=== PATIENT | female | born 1990 | race Caucasian/White ===

== ENCOUNTER 2016-11-03 18:00 | Inpatient (IN) | payer MEDICAID, OTHER ==
[2016-11-03] MEDS ORDERED: Penicillin G 5 Million Unit Vial IVPB ONE ×2 (18:23→22:28)
[2016-11-03] MEDS ORDERED: Lactated Ringer's 1,000 ML IV SCH (18:30)
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
--- NOTE | 2016-11-03 19:43 | OBPN ---
Datetime: 11/03/2016 19:38 IP Progress Impression: Normal progression of labor IP Informed Consent Obtain: Vaginal Delivery IP Progress Plan: Continue present management FHR - Baseline A Provider: 145 Gestation - Est Wks by US: 37.2 IP Progress Note Comment: pt seen and examined c/o pain VE 4-5 A/P P1 @ 37+ wks in active labor -declined pain managment -conttoco adn efm -cont current managment Vital Signs Provider: Reviewed NICHD Variability Prov Fetus A: Moderate 6-25bpm Dilatation, Provider: 4 Effacement, Provider: 70 Station, Provider: -2 Datetime: 11/03/2016 18:30 Membranes, Provider: Intact Contraction Comments Provider: q 2- 3min Presentation-Admit: Vertex
[2016-11-03 20:07] LABS: BASO % 0.3 % (0.0-2.0); EOS # 0.1 K/uL (0.0-0.7); EOS % 0.7 % (0.0-4.0); HEMATOCRIT 31.5 % (34.0-47.0); LYMPH # 2.7 K/uL (1.0-4.3); LYMPH % 20.2 % (20.0-40.0); MEAN CELL VOLUME 90.5 fL (81.0-99.0); MEAN CORPUSCULAR HEMOGLOBIN 31.3 pg (27.0-31.0); MEAN CORPUSCULAR HGB CONC 34.6 g/dL (33.0-37.0); MONO # 0.8 K/uL (0.0-0.8); MONO % 6.1 % (0.0-10.0); NRBC % 0.1 % (0.0-2.0); RED CELL DISTRIBUTION WIDTH 12.6 % (11.5-14.5); WHITE BLOOD COUNT 13.4 K/uL (4.8-10.8)
[2016-11-03 20:18] LABS: ALKALINE PHOSPHATASE 190 U/L (38-126); ALT/SGPT 25 U/L (9-52); AST/SGOT 26 U/L (14-36); BILIRUBIN,TOTAL 0.6 mg/dL (0.2-1.3); BLOOD UREA NITROGEN 7 mg/dL (7-17); CALCIUM 9.5 mg/dl (8.6-10.4); CARBON DIOXIDE 22 mmol/L (22-30); CHLORIDE 101 mmol/L (98-107); GFR AFRICAN-AMERICAN > 60; GLUCOSE,RANDOM 69 mg/dL (65-105); POTASSIUM 3.9 mmol/L (3.6-5.2); SODIUM 137 mmol/L (132-148); TOTAL PROTEIN 7.3 g/dL (6.3-8.3)
[2016-11-03 20:37] LABS: RBC URINE 27 /hpf (0-3); TRANSITIONAL EPITHIAL < 1 /hpf (0-3); URINE BACTERIA FEW (<OCC); URINE BILIRUBIN NEGATIVE (NEGATIVE); URINE BLOOD 2+ (NEGATIVE); URINE COLOR Yellow (YELLOW); URINE GLUCOSE (UA) NORMAL (Normal); URINE KETONE NEGATIVE (NEGATIVE); URINE LEUKOCYTE ESTERASE 2+ Leu/uL (Negative); URINE PROTEIN NEGATIVE (NEGATIVE); URINE UROBILINOGEN NORMAL mg/dL (0.2-1.0); WBC URINE 47 /hpf (0-5)
[2016-11-03] MEDS ORDERED: Nalbuphine 20 mg/ml Inj (1 ml) IVP PRN (21:00)
[2016-11-03] MEDS ORDERED: Nalbuphine 20 mg/ml Inj (1 ml) ONE (21:21)
[2016-11-03] MEDS ORDERED: Bupivacaine 0.25% Inj(30mL) ONE (23:37)
[2016-11-03] MEDS ORDERED: Oxytocin 30 UNIT 30 UNITS/500 ML BAG IV SCH (23:45)
[2016-11-03] MEDS ORDERED: Oxytocin 30 UNIT 30 UNITS/500 ML BAG IV ONE (23:51)
[2016-11-04] MEDS ORDERED: Benzocaine/Menthol 20%-0.5% Topical Spray (60 ml) TOP PRN (03:36)
--- NOTE | 2016-11-04 03:36 | OBDS ---
DELIVERY PERSONNEL Delivery Doctor: Flor Chopra MD Typewriter Assembler: Jessica Arce RN Anesthesiologist: Flor Hughes MD MATERNAL INFORMATION Delivery Anesthesia: Epidural Medications in Delivery: pitocin 20 units Estimated Blood Loss (ml): 400 Placenta Cultured: No Maternal Complications: None Provider Comments: pt was fully dilated and pushing. atrumatic, spontanous deliveyr of head in Nikolay p ositon, no nuchal cord noted. atrumat,c spontnaous delivyer of anterior followed by posteiro shoulder followed by deliveyr of body . both oral and nsal passage of baby bulb suctioned. umbical cord clamp ed and cut. Cord blood and cord gases collected adn sent x 2. Spontaneous deliveyr of intact placenta with membrnes. fundus firm. intact perineum. good hemostasis, no ocmplications. live male apgars 9,9 weight of 5lb 13 ounces ebl 400ml LABOR SUMMARY EDC: 11/22/2016 00:00 No. Babies in Womb: 1 Attempted: No Labor Anesthesia: Epidural LABOR INFORMATION Reason for Induction: Not Applicable Onset of Labor: 11/03/2016 19:00 Oxytocin: Augmentation Group B Beta Strep: Not Done Steroids Given: None Reason Steroids Not Administered: Not Applicable MEMBRANES Membranes Rupture Method: Artificial Rupture of Membranes: 11/03/2016 23:44 Length of Rupture (hrs): 3.57 Amniotic Fluid Color: Light Meconium Amniotic Fluid Amount: Small Amniotic Fluid Odor: Normal BABY A INFORMATION Delivery Date/Time: 11/04/2016 03:18 Method of Delivery: Vaginal Born in Route : No : N/A Forceps: N/A Vacuum Extraction: N/A Shoulder Dystocia : No SHOULDER DYSTOCIA BABY A Delivery Date/Time: 11/04/2016 03:18 PRESENTATION/POSITION BABY A Presentation: Cephalic Cephalic Presentation: Vertex INFORMATION BABY A Gestational Age at Delivery: 37.2 Gestational Status: Term Outcome : Liveborn Condition : Stable Infant Sex: Male IDENTIFICATION/MEDS BABY A ID Band Number: [id number] Sensor Number: [id number] WEIGHT/LENGTH BABY A Infant Birthweight (gms): 2935 Infant Weight (lb): 6 Infant Weight (oz): 7 Infant Length Inches: 19.00 Infant Length cms: 48.3
[2016-11-04] MEDS ORDERED: Oxytocin 30 UNIT 30 UNITS/500 ML BAG IV SCH (03:45)
[2016-11-04] MEDS: Oxycodone/Acetaminophen 5/325 mg Tab PO PRN ×4 (07:18→20:34)
[2016-11-04] MEDS ORDERED: Oxycodone/Acetaminophen 5/325 mg Tab ONE (07:21)
[2016-11-04 17:07] LABS: RAPID PLASMA REAGIN NONREACTIVE (NONREACTIVE)
[2016-11-05] MEDS: Oxycodone/Acetaminophen 5/325 mg Tab PO PRN ×4 (02:12→20:18)
[2016-11-05 08:16] LABS: HEMATOCRIT 26.4 % (34.0-47.0); MEAN CORPUSCULAR HGB CONC 34.1 g/dL (33.0-37.0); RED CELL DISTRIBUTION WIDTH 13.2 % (11.5-14.5); WHITE BLOOD COUNT 12.1 K/uL (4.8-10.8)
--- NOTE | 2016-11-05 10:46 | OBPPN ---
Datetime: 11/05/2016 10:36 PP Pain Prov: Within normal limits PP Nausea Prov: Denies PP Flatus Prov: Yes PP BM Prov: No PP Breasts Prov: Normal PP Heart Prov: Normal PP Lungs Prov: Normal PP Abdomen/Uterus Prov: Normal PP Lochia Prov: Normal PP Vulva/Perineum Prov: Normal PP CVA Tenderness Prov: Normal PP Extremities Prov: Normal PP C/S Incision Prov: Not Applicable PP Progress Prov: Normal PP Comments Phys Exam Prov: Breasts: no cracked nipples Abdomen: Soft. Non distended. Fundus firm, mobile, minimally tender, at umbilicus. Moderate loch ia All other systems reviewed and are negative. PP Impression Prov: Normal progression PP Plan Prov: Continue present management PP Progress Note Prov: Patient received in bed in room 455; awakened and easily awakened. Breastfee ding primarily. P.E.: as above. WD in NAD. Awake, alert, oriented to time, person and place - PPD#1 H/H 9.0/26.4. Rh(+) Assessment: PPD#1, 26 y.o. P2022, S/P . Aebrile; vital signs stable. Anemianoted; chronic - a symptomatic and hemodynamically stable. Clinically stable. Plan: 1) continue present management 2) start ferrous sulphate 1 tab po QD 3) Anticipate discharge home 11/06/16 Vital Signs Provider PP: Reviewed
[2016-11-06 11:15] VITALS: BP 118/88; PULSE 60; RESP 18; TEMP 97.1; O2SAT 100
--- NOTE | 2016-11-06 11:19 | OBPPN ---
Datetime: 11/06/2016 07:24 PP Pain Prov: Within normal limits PP Nausea Prov: Denies PP Flatus Prov: Yes PP BM Prov: No PP Impression Prov: Normal progression PP Plan Prov: Continue present management; Discharge PP Progress Note Prov: Patient seen and examined at bedside. Patient is doing well, pain is controll ed. Lochia is mild. Patient is ambulating and tolerating diet. Urinating without difficulty. Patient is passing flatus, no BM. Denies headaches, dizziness, cp, palpitations, sob, urinary symtoms. +breas t feeding VS: 115/71 67 98.2 Gen: AAOx3, NAD CV: RRR Lungs: CTA B/L Abd: soft, appropriately tender, fundus firm at umbilicus Ext: No clubbing, cyanosis, edema; no calf tenderness Labs: 13.4>10.9/31.5<247 12.1>9.0/26.4<161 O positive Rubella immune A/P: 26 yo at 37w3d s/p PPD#2 1. stable, afebrile 2. pain control - motrin and tylenol prn 3. encourage ambulation and hydration 4. anemia - continue ferrous sulfate 5. continue routine care 6. anticipate discharge today- pelvic rest x 6 wks, tylenol/motrin prn pain, f/u with clinic in 6 weeks 7. plan d/w attending Chaya Salazar DO, PGY-[address] Rock Vital Signs Provider PP: Reviewed
== END 2016-11-06 15:20 | disposition home or self-care (01) | DRG 373 ==
LOC: C.EROB 18:00 → C.4D 18:24 → C.4M 11-04 10:23
PROVIDERS: ADMIT Obstetrics & Gynecology; ATTEND Obstetrics & Gynecology
PROC: 10E0XZZ Delivery of Products of Conception, External Approach (ICD-10-PCS; principal; 2016-11-04)
PROC: 10907ZC Drainage of Amniotic Fluid, Therapeutic from Products of Conception, Via Natural or Artificial Opening (ICD-10-PCS; 2016-11-04)
DX: O99.02 Anemia complicating childbirth (principal); O77.0 Labor and delivery complicated by meconium in amniotic fluid; Z3A.37 37 weeks gestation of pregnancy; Z37.0 Single live birth

== ENCOUNTER 2017-07-10 18:36 | Emergency (ER) | payer MEDICAID ==
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
[2017-07-10 19:17] VITALS: RESP 22; TEMP 98.6
[2017-07-10] MEDS ORDERED: Sodium Chloride 0.9% 1,000 ML IV ONE (19:31)
[2017-07-10 19:50] LABS: BASO # 0.1 K/uL (0.0-0.2); BASO % 0.7 % (0.0-2.0); EOS # 0.1 K/uL (0.0-0.7); LYMPH # 2.2 K/uL (1.0-4.3); LYMPH % 19.7 % (20.0-40.0); MEAN CELL VOLUME 90.1 fL (81.0-99.0); MEAN CORPUSCULAR HEMOGLOBIN 31.2 pg (27.0-31.0); MEAN CORPUSCULAR HGB CONC 34.6 g/dL (33.0-37.0); MEAN PLATELET VOLUME 8.8 fL (7.2-11.7); MONO # 0.6 K/uL (0.0-0.8); MONO % 5.5 % (0.0-10.0); NEUT # 8.2 K/uL (1.8-7.0); NEUT % 73.1 % (50.0-75.0); RBC 3.92 Mil/uL (3.80-5.20); RED CELL DISTRIBUTION WIDTH 12.4 % (11.5-14.5); WHITE BLOOD COUNT 11.2 K/uL (4.8-10.8)
[2017-07-10 19:52] LABS: HEMOGLOBIN 12.2 g/dL (11.0-16.0)
[2017-07-10 20:02] LABS: ALB/GLOB RATIO 1.1 (1.0-2.1); ALBUMIN 4.1 g/dL (3.5-5.0); ALT/SGPT 21 U/L (9-52); AST/SGOT 17 U/L (14-36); BLOOD UREA NITROGEN 9 mg/dL (7-17); CALCIUM 9.2 mg/dl (8.6-10.4); GFR AFRICAN-AMERICAN > 60; GFR NON-AFRICAN AMERICAN > 60
[2017-07-10 20:06] LABS: BARBITURATES, UR NEGATIVE (NEGATIVE); BENZODIAZEPINES, UR NEGATIVE (NEGATIVE); OPIATES, UR NEGATIVE (NEGATIVE); PHENCYCLIDINE, UR NEGATIVE (NEGATIVE)
[2017-07-10 20:11] LABS: SQUAMOUS EPITHIAL 25 /hpf (0-5); URINE BACTERIA FEW (<OCC); URINE BILIRUBIN NEGATIVE (NEGATIVE); URINE BLOOD NEGATIVE (NEGATIVE); URINE CLARITY Hazy (Clear); URINE COLOR Yellow (YELLOW); URINE GLUCOSE (UA) NORMAL (Normal); URINE LEUKOCYTE ESTERASE TRACE Leu/uL (Negative); URINE PROTEIN 2+ mg/dL (NEGATIVE); URINE UROBILINOGEN NORMAL mg/dL (0.2-1.0)
[2017-07-11] VITALS: BP 106/68; PULSE 73; O2SAT 98
== END 2017-07-11 00:29 | disposition home or self-care (01) ==
LOC: C.ER 18:36
DX: F19.10 Other psychoactive substance abuse, uncomplicated (principal)
CPT/HCPCS: 80053; 80324; 80345; 80346; 80349; 80353; 80358; 80361; 81001; 83992; 85025; 96360; 99284; J7040

== ENCOUNTER 2017-07-29 09:24 | Emergency (ER) | payer MEDICAID ==
[2017-07-29 09:30] VITALS: TEMP 98.3
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
[2017-07-29 10:36] VITALS: BP 121/81; PULSE 79; RESP 20
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
[2017-07-29 12:07] VITALS: O2SAT 98
== END 2017-07-29 10:36 | disposition home or self-care (01) ==
LOC: C.ER 09:24
DX: S60.222A Contusion of left hand, initial encounter (principal); W22.8XXA Striking against or struck by other objects, initial encounter

== ENCOUNTER 2017-09-27 10:41 | Emergency (ER) | payer MEDICAID ==
[2017-09-27 10:41] VITALS: BMI 28.9
[2017-09-27 10:50] VITALS: TEMP 98.5; O2SAT 100
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
[2017-09-27 12:04] VITALS: BP 124/80; PULSE 73; RESP 18
== END 2017-09-27 12:10 | disposition home or self-care (01) ==
LOC: C.ER 10:41
DX: S40.021A Contusion of right upper arm, initial encounter (principal); S80.12XA Contusion of left lower leg, initial encounter; W10.9XXA Fall (on) (from) unspecified stairs and steps, initial encounter; Y92.9 Unspecified place or not applicable

== ENCOUNTER 2017-12-27 14:26 | Emergency (ER) | payer MEDICAID ==
[2017-12-27 14:26] VITALS: BMI 28.9
[2017-12-27 15:22] LABS: BASO # 0.1 K/uL (0.0-0.2); BASO % 1.1 % (0.0-2.0); EOS # 0.1 K/uL (0.0-0.7); HEMOGLOBIN 12.6 g/dL (11.0-16.0); LYMPH # 2.7 K/uL (1.0-4.3); LYMPH % 26.9 % (20.0-40.0); MEAN CORPUSCULAR HEMOGLOBIN 31.8 pg (27.0-31.0); MEAN CORPUSCULAR HGB CONC 34.6 g/dL (33.0-37.0); MEAN PLATELET VOLUME 8.8 fL (7.2-11.7); MONO # 0.7 K/uL (0.0-0.8); MONO % 6.8 % (0.0-10.0); NEUT # 6.4 K/uL (1.8-7.0); NEUT % 64.2 % (50.0-75.0); RBC 3.95 Mil/uL (3.80-5.20); RED CELL DISTRIBUTION WIDTH 12.8 % (11.5-14.5)
--- NOTE | 2017-12-27 15:34 | RAD ---
HISTORY: Overdosed COMPARISON: None available. TECHNIQUE: Chest, one view. FINDINGS: LUNGS: No focal consolidation. Please note that chest x-ray has limited sensitivity for the detection of pulmonary masses. PLEURA: No significant pleural effusion identified. No definite pneumothorax . CARDIOVASCULAR: The cardiomediastinal silhouette appears within normal limits of size. No significant atherosclerotic calcification present. OSSEOUS STRUCTURES: No acute osseous abnormality identified. VISUALIZED UPPER ABDOMEN: Unremarkable. OTHER FINDINGS: None. IMPRESSION: No acute findings identified.
[2017-12-27 15:35] LABS: ACETAMINOPHEN < 10.0 ug/mL (10.0-30.0); SALICYLATE < 1.0 mg/dL 1
[2017-12-27 15:36] LABS: ALB/GLOB RATIO 1.4 (1.0-2.1); ALBUMIN 4.5 g/dL (3.5-5.0); ALT/SGPT 15 U/L (9-52); AST/SGOT 18 U/L (14-36); BLOOD UREA NITROGEN 12 mg/dL (7-17); CALCIUM 9.4 mg/dl (8.6-10.4); GFR NON-AFRICAN AMERICAN > 60
[2017-12-27 16:37] VITALS: O2SAT 100
[2017-12-27 17:09] LABS: SQUAMOUS EPITHIAL < 1 /hpf (0-5); URINE AMORPHOUS SEDIMENT OCC /ul (<OCC); URINE BACTERIA OCC (<OCC); URINE BILIRUBIN NEGATIVE (NEGATIVE); URINE BLOOD NEGATIVE (NEGATIVE); URINE CLARITY Hazy (Clear); URINE COLOR Yellow (YELLOW); URINE GLUCOSE (UA) NORMAL (Normal); URINE LEUKOCYTE ESTERASE NEG Leu/uL (Negative); URINE PROTEIN 3+ mg/dL (NEGATIVE); URINE UROBILINOGEN NORMAL mg/dL (0.2-1.0)
[2017-12-27 17:22] LABS: BARBITURATES, UR NEGATIVE (NEGATIVE); BENZODIAZEPINES, UR NEGATIVE (NEGATIVE); PHENCYCLIDINE, UR NEGATIVE (NEGATIVE)
[2017-12-27 17:25] LABS: OPIATES, UR POSITIVE (NEGATIVE)
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
[2017-12-27] MEDS ORDERED: Sodium Chloride 0.9% 1,000 ML IV ONE (22:13)
[2017-12-28 01:16] VITALS: BP 117/75; PULSE 64; RESP 16; TEMP 98.2
--- NOTE | 2017-12-28 13:56 | CT ---
Date of service: 12/27/2017 PROCEDURE: CT HEAD WITHOUT CONTRAST. HISTORY: r/o ICH and fx COMPARISON: None available. TECHNIQUE: Axial computed tomography images were obtained through the head/brain without intravenous contrast. Radiation dose: Total exam DLP = 1238.49 mGy-cm. This CT exam was performed using one or more of the following dose reduction techniques: Automated exposure control, adjustment of the mA and/or kV according to patient size, and/or use of iterative reconstruction technique. FINDINGS: HEMORRHAGE: No intracranial hemorrhage. BRAIN: Normal buckner-white matter differentiation and density are appreciated throughout the cerebrum and cerebellum with the brainstem appearing unremarkable as well. There is no mass effect. There is no suspicious extra-axial fluid collection and the midline brain anatomy appears diffusely unremarkable. VENTRICLES: Unremarkable. No hydrocephalus. CALVARIUM: Unremarkable. PARANASAL SINUSES: Unremarkable as visualized. No significant inflammatory changes. MASTOID AIR CELLS: Unremarkable as visualized. No inflammatory changes. OTHER FINDINGS: None. IMPRESSION: Unremarkable noncontrast CT of the Head. Concordant preliminary report from [facility], 12/27/2017.
--- NOTE | 2017-12-30 17:35 | CARD ---
APPROVED REPORT Date of service: 12/27/2017 EKG Measurement Heart [id number] NM [id number] [id number] <Conclusion> Normal sinus rhythm with sinus arrhythmia Nonspecific T wave abnormality Abnormal ECG
--- NOTE | 2017-12-30 17:36 | CARD ---
APPROVED REPORT Date of service: 12/27/2017 EKG Measurement Heart [id number] NM [id number] [id number] <Conclusion> Normal sinus rhythm Normal ECG
== END 2017-12-28 02:27 | disposition home or self-care (01) ==
LOC: C.ER 14:26
DX: F19.20 Other psychoactive substance dependence, uncomplicated (principal); N39.0 Urinary tract infection, site not specified
CPT/HCPCS: 70450; 71045; 80053; 80320; 80324; 80329; 80345; 80346; 80349; 80353; 80358; 80361; 81001; 83992; 84702; 85025; 93005; 96360; 99285; J7030